=== PATIENT | male | born 1955 | race African-American/Black ===

== ENCOUNTER 2019-05-12 10:16 | Inpatient (IN) | payer OTHER ==
[~2019-05-12] VITALS: Ht 193 cm; Wt 149.2 kg
[~2019-05-12 10:16] MED LIST: ASPI-518 PO; CLON0.1T; DILT300C54; FURO-151 PO; SIMV40TA2
[2019-05-12 11:15] LABS: *AMPHETAMINES SCREEN URINE NEGATIVE (NEGATIVE); *BARBITURATES SCREEN URINE NEGATIVE (NEGATIVE); *BENZODIAZEPINES SCREEN URINE NEGATIVE (NEGATIVE); *COCAINE SCREEN URINE NEGATIVE (NEGATIVE); METHADONE URINE SCREEN NEGATIVE (NEGATIVE); OPIATES URINE SCREEN NEGATIVE (NEGATIVE)
[2019-05-12 11:16] LABS: CANNABINOID URINE SCREEN NEGATIVE (NEGATIVE); PHENCYCLIDINE URINE SCREEN NEGATIVE (NEGATIVE)
[2019-05-12 11:19] LABS: BASOPHILS % 0.6 % (0.0-2.0); EOSINOPHILS % 1.6 % (0.0-5.0); HEMATOCRIT. 48.5 % (42.0-52.0); HEMOGLOBIN. 16.5 g/dL (14.0-18.0); LYMPHOCYTES % 25.8 % (20.0-50.0); MEAN CORPUSCULAR HEMOGLOBIN 32.6 pg (28.0-32.0); MEAN PLATELET VOLUME 8.3 fl (7.4-10.4); MONOCYTES % 7.3 % (2.0-8.0); NEUTROPHILS % 64.7 % (40.0-76.0); PLATELET 324 x1000/uL (130-400); RED BLOOD CELL COUNT 5.05 mill/uL (4.7-6.1); RED CELL DISTRIBUTION WIDTH 15.6 % (11.6-14.6)
[2019-05-12 11:25] LABS: CHLORIDE 104 mEq/L (98-107)
[2019-05-12 11:28] LABS: ETHANOL BLOOD < 10 mg/dL; INR 1.2; PARTIAL THROMBOPLASTIN TIME 35.1 sec (23.4-31.0); PROTHROMBIN TIME 12.8 sec (9.6-11.0)
[2019-05-12] MEDS ORDERED: MORPHINE SULFATE 4 MG/ML CPJ (NOT FOR IM USE) IV STA (11:53)
[2019-05-12] MEDS ORDERED: ONDANSETRON HCL 4MG/2ML INJ IV STA (11:53)
[2019-05-12] MEDS ORDERED: NITROGLYCERIN OINT 1GM/INCH UDPKT TD ONE (12:00)
[2019-05-12] MEDS ORDERED: DILTIAZEM HCL 5MG/ML 5ML VIAL IV ONE (12:00)
[2019-05-12] MEDS ORDERED: ENOXAPARIN 120MG/0.8ML SYR SUBCUT ONE (12:00)
[2019-05-12] MEDS ORDERED: POTASSIUM CHLORIDE 20MEQ TABLET SR PO ONE ×2 (12:30→13:00)
[2019-05-12] MEDS ORDERED: ONDANSETRON HCL 4MG/2ML INJ IV PRN (14:00)
[2019-05-12] MEDS ORDERED: DOCUSATE SODIUM 100MG CAPSULE PO PRN (14:00)
[2019-05-12] MEDS ORDERED: MORPHINE SULFATE 2 MG/ML CPJ (NOT FOR IM USE) IV PRN (14:00)
[2019-05-12] MEDS ORDERED: GUAIFENESIN 200MG/10ML SUGAR FREE UDC PO PRN (14:00)
[2019-05-12] MEDS: NITROGLYCERIN OINT 1GM/INCH UDPKT TD SCH ×2 (14:00→23:19)
[2019-05-12] MEDS ORDERED: MAGNESIUM/ALUMINUM HYDROXIDE/SIMETHICONE 30ML UDC PO PRN (14:00)
[2019-05-12] MEDS: CLONIDINE 0.1MG TABLET PO PRN (14:24)
[2019-05-12] MEDS: ACETAMINOPHEN 325MG TABLET PO PRN (14:24)
[2019-05-12] MEDS: DILTIAZEM HCL 60MG TABLET PO SCH (17:27)
[2019-05-12 21:52] VITALS: BP 146/102
[2019-05-12 22:52] VITALS: BP 124/77
[2019-05-12] MEDS ORDERED: ENOXAPARIN 120MG/0.8ML SYR SUBCUT NR (23:00)
[2019-05-12] MEDS: ATORVASTATIN CALCIUM 10MG TABLET PO SCH (23:17)
[2019-05-13] VITALS (13 sets, daily range): BP systolic 117–156; BP diastolic 52–92
[2019-05-13] MEDS: DILTIAZEM HCL 60MG TABLET PO SCH ×2 (00:24→08:33)
[2019-05-13] MEDS: NITROGLYCERIN OINT 1GM/INCH UDPKT TD SCH ×3 (05:36→21:47)
[2019-05-13] MEDS ORDERED: CARV25TA47 PO (05:58)
[2019-05-13] MEDS ORDERED: VALS160T28 PO (05:58)
[2019-05-13 07:04] LABS: BASOPHILS % 0.6 % (0.0-2.0); HEMATOCRIT. 41.4 % (42.0-52.0); HEMOGLOBIN. 13.9 g/dL (14.0-18.0); LYMPHOCYTES % 28.9 % (20.0-50.0); MEAN CORPUSCULAR HEMOGLOBIN 31.9 pg (28.0-32.0); MEAN CORPUSCULAR VOLUME 95.3 fL (80.0-94.0); MEAN PLATELET VOLUME 8.6 fl (7.4-10.4); NEUTROPHILS % 55.5 % (40.0-76.0); PLATELET 290 x1000/uL (130-400); RED BLOOD CELL COUNT 4.34 mill/uL (4.7-6.1); RED CELL DISTRIBUTION WIDTH 15.7 % (11.6-14.6)
[2019-05-13] MEDS: ASPIRIN 81MG EC TABLET PO SCH (08:33)
[2019-05-13] MEDS: CARVEDILOL 3.125 MG TABLET PO SCH ×2 (10:14→20:36)
[2019-05-13] MEDS: ENOXAPARIN 150MG/ML SYR SUBCUT SCH (11:54)
[2019-05-13] MEDS: DILTIAZEM HCL 30MG TABLET PO SCH ×2 (11:55→17:10)
[2019-05-13] MEDS ORDERED: POTASSIUM CHLORIDE 20MEQ TABLET SR PO NR (12:45)
[2019-05-13] MEDS: ATORVASTATIN CALCIUM 10MG TABLET PO SCH (20:37)
[2019-05-14] VITALS (12 sets, daily range): BP systolic 127–171; BP diastolic 70–107
[2019-05-14] MEDS: DILTIAZEM HCL 30MG TABLET PO SCH ×4 (00:17→16:31)
[2019-05-14] MEDS: ENOXAPARIN 150MG/ML SYR SUBCUT SCH (00:17)
[2019-05-14] MEDS: ACETAMINOPHEN 325MG TABLET PO PRN (03:16)
[2019-05-14] MEDS: NITROGLYCERIN OINT 1GM/INCH UDPKT TD SCH ×2 (06:00→13:46)
[2019-05-14 07:12] LABS: BASOPHILS % 0.5 % (0.0-2.0); EOSINOPHILS % 1.8 % (0.0-5.0); HEMATOCRIT. 37.9 % (42.0-52.0); HEMOGLOBIN. 12.8 g/dL (14.0-18.0); MEAN CORPUSCULAR HEMOGLOBIN 32.1 pg (28.0-32.0); MEAN CORPUSCULAR VOLUME 94.9 fL (80.0-94.0); MEAN PLATELET VOLUME 8.4 fl (7.4-10.4); MONOCYTES % 11.6 % (2.0-8.0); NEUTROPHILS % 56.1 % (40.0-76.0); PLATELET 286 x1000/uL (130-400); RED BLOOD CELL COUNT 3.99 mill/uL (4.7-6.1); RED CELL DISTRIBUTION WIDTH 15.3 % (11.6-14.6)
[2019-05-14] MEDS: ASPIRIN 81MG EC TABLET PO SCH (08:28)
[2019-05-14] MEDS: CARVEDILOL 3.125 MG TABLET PO SCH (08:28)
[2019-05-14] MEDS: POTASSIUM CHLORIDE 20MEQ TABLET SR PO SCH (11:01)
[2019-05-14] MEDS: CLONIDINE 0.1MG TABLET PO PRN (12:14)
[2019-05-14] MEDS: APIXABAN 5 MG TABLET PO SCH (16:31)
[2019-05-14] MEDS ORDERED: CLONIDINE 0.2MG TABLET PO PRN (17:36)
[2019-05-14] MEDS: ATORVASTATIN CALCIUM 10MG TABLET PO SCH (21:10)
[2019-05-14] MEDS: CARVEDILOL 6.25 MG TABLET PO SCH (21:11)
[2019-05-15] VITALS (9 sets, daily range): BP systolic 109–169; BP diastolic 55–100
[2019-05-15] MEDS: DILTIAZEM HCL 60MG TABLET PO SCH ×3 (00:54→12:58)
[2019-05-15 06:15] LABS: CHLORIDE 108 mEq/L (98-107)
[2019-05-15] MEDS: POTASSIUM CHLORIDE 20MEQ TABLET SR PO SCH (09:37)
[2019-05-15] MEDS: CARVEDILOL 6.25 MG TABLET PO SCH (09:38)
[2019-05-15] MEDS: APIXABAN 5 MG TABLET PO SCH ×2 (09:39→14:18)
== END 2019-05-15 15:18 | disposition home or self-care (01) | DRG 280 ==
LOC: ER 10:16 → EDBEDREQ 12:08 → 3WST 12:13 → EDBEDREQ 12:19 → ENRESERV 20:51
PROVIDERS: ADMIT Hospitalist; ATTEND Hospitalist
DX: I21.4 Non-ST elevation (NSTEMI) myocardial infarction (principal); I50.43 Acute on chronic combined systolic (congestive) and diastolic (congestive) heart failure; N17.0 Acute kidney failure with tubular necrosis; I13.0 Hypertensive heart and chronic kidney disease with heart failure and stage 1 through stage 4 chronic kidney disease, or unspecified chronic kidney disease; I48.19 Other persistent atrial fibrillation; I48.92 Unspecified atrial flutter; I47.2 Ventricular tachycardia; N18.9 Chronic kidney disease, unspecified; E78.5 Hyperlipidemia, unspecified; E86.0 Dehydration; J44.9 Chronic obstructive pulmonary disease, unspecified; I49.8 Other specified cardiac arrhythmias; G47.33 Obstructive sleep apnea (adult) (pediatric); F43.10 Post-traumatic stress disorder, unspecified; Z79.01 Long term (current) use of anticoagulants; Z82.3 Family history of stroke; Z82.49 Family history of ischemic heart disease and other diseases of the circulatory system; Z86.73 Personal history of transient ischemic attack (TIA), and cerebral infarction without residual deficits; Z79.82 Long term (current) use of aspirin; Z88.8 Allergy status to other drugs, medicaments and biological substances
CPT/HCPCS: 36415; 71045; 80048; 80053; 80061; 80305; 80320; 83735; 83880; 84484; 85025; 93005; 93306; 93970; 99291; J1650; J2270; J2405; J3490; G0480

== ENCOUNTER 2019-05-18 17:13 | Inpatient (IN) | payer OTHER ==
[~2019-05-18] VITALS: Ht 193 cm; Wt 149.7 kg
[~2019-05-18 17:13] MED LIST changes: +CARV25TA47 PO; +VALS160T28 PO
[2019-05-18 19:01] LABS: BASOPHILS % 0.3 % (0.0-2.0); EOSINOPHILS % 1.4 % (0.0-5.0); HEMATOCRIT. 45.2 % (42.0-52.0); HEMOGLOBIN. 15.2 g/dL (14.0-18.0); LYMPHOCYTES % 24.3 % (20.0-50.0); MEAN CORPUSCULAR HEMOGLOBIN 32.1 pg (28.0-32.0); MEAN CORPUSCULAR VOLUME 95.4 fL (80.0-94.0); MEAN PLATELET VOLUME 7.9 fl (7.4-10.4); PLATELET 288 x1000/uL (130-400); RED BLOOD CELL COUNT 4.74 mill/uL (4.7-6.1); RED CELL DISTRIBUTION WIDTH 15.7 % (11.6-14.6)
[2019-05-18 19:10] LABS: INR 1.2; PARTIAL THROMBOPLASTIN TIME 34.5 sec (23.4-31.0); PROTHROMBIN TIME 13.2 sec (9.6-11.0)
[2019-05-18 19:17] LABS: CHLORIDE 102 mEq/L (98-107)
[2019-05-18] MEDS ORDERED: ASPIRIN 325MG EC TABLET PO ONE (20:30)
[2019-05-19 08:15] VITALS: BP 141/98
[2019-05-19] MEDS ORDERED: MORPHINE SULFATE 2 MG/ML CPJ (NOT FOR IM USE) IV PRN (09:00)
[2019-05-19] MEDS ORDERED: DOCUSATE SODIUM 100MG CAPSULE PO PRN (09:00)
[2019-05-19] MEDS ORDERED: HYDROCODONE/ACETAMINOPHEN 5/325MG TABLET PO PRN (09:00)
[2019-05-19] MEDS ORDERED: ENOXAPARIN 40MG/0.4ML SYR SUBCUT SCH (09:00)
[2019-05-19] MEDS ORDERED: ONDANSETRON HCL 4MG/2ML INJ IV PRN (09:00)
[2019-05-19] MEDS ORDERED: ACETAMINOPHEN 325MG TABLET PO PRN (09:00)
[2019-05-19] MEDS: ENOXAPARIN 40MG/0.4ML SYR SUBCUT SCH ×2 (09:26→22:31)
[2019-05-19] MEDS: AMLODIPINE 10MG TABLET PO SCH (09:27)
[2019-05-19] MEDS: ASPIRIN 81MG EC TABLET PO SCH (09:27)
[2019-05-19] MEDS ORDERED: POTA20TA82 PO (09:55)
[2019-05-19 12:00] VITALS: BP 120/83
[2019-05-19] MEDS ORDERED: LOPERAMIDE HCL 2MG CAPSULE PO SCH (14:15)
[2019-05-19 15:23] LABS: CREATINE KINASE MB FRACTION 3.8 ng/mL (0.5-3.6)
[2019-05-19 16:00] VITALS: BP 151/78
[2019-05-19 20:00] VITALS: BP 122/80
[2019-05-19 23:49] LABS: CREATINE KINASE MB FRACTION 3.4 ng/mL (0.5-3.6)
[2019-05-20] VITALS (9 sets, daily range): BP systolic 109–139; BP diastolic 62–91
[2019-05-20 07:47] LABS: BASOPHILS % 0.7 % (0.0-2.0); EOSINOPHILS % 3.6 % (0.0-5.0); HEMATOCRIT. 42.1 % (42.0-52.0); HEMOGLOBIN. 14.6 g/dL (14.0-18.0); MEAN CORPUSCULAR HEMOGLOBIN 32.7 pg (28.0-32.0); MEAN CORPUSCULAR VOLUME 94.4 fL (80.0-94.0); MEAN PLATELET VOLUME 8.1 fl (7.4-10.4); MONOCYTES % 10.9 % (2.0-8.0); NEUTROPHILS % 53.8 % (40.0-76.0); PLATELET 285 x1000/uL (130-400); RED BLOOD CELL COUNT 4.46 mill/uL (4.7-6.1); RED CELL DISTRIBUTION WIDTH 15.5 % (11.6-14.6)
[2019-05-20 08:03] LABS: CHLORIDE 109 mEq/L (98-107)
[2019-05-20 08:17] LABS: LDL CHOLESTEROL 73 mg/dL (5-100)
[2019-05-20 08:18] LABS: HDL CHOLESTEROL 25 mg/dL (40-59)
[2019-05-20] MEDS ORDERED: APIXABAN 5 MG TABLET PO SCH (09:00)
[2019-05-20] MEDS ORDERED: DILTIAZEM HCL 30MG TABLET PO PRN (09:45)
[2019-05-20] MEDS: AMLODIPINE 10MG TABLET PO SCH (13:04)
[2019-05-20] MEDS: ASPIRIN 81MG EC TABLET PO SCH (13:04)
[2019-05-20] MEDS: APIXABAN 5 MG TABLET PO SCH (21:59)
[2019-05-20] MEDS: CARVEDILOL 12.5MG TABLET PO SCH (21:59)
[2019-05-20] MEDS ORDERED: POTASSIUM CHLORIDE 20MEQ TABLET SR PO NR (22:00)
[2019-05-20] MEDS ORDERED: POTASSIUM CHLORIDE INJ 40 MEQ in DEXT 5% WATER 250 ML IV NR (22:30)
[2019-05-21] VITALS: BP 111/72
[2019-05-21 04:00] VITALS: BP 161/101
[2019-05-21 08:00] VITALS: BP 150/96
[2019-05-21] MEDS: APIXABAN 5 MG TABLET PO SCH ×2 (09:30→16:46)
[2019-05-21] MEDS: CARVEDILOL 12.5MG TABLET PO SCH ×2 (09:30→21:05)
[2019-05-21] MEDS: AMLODIPINE 10MG TABLET PO SCH (09:30)
[2019-05-21] MEDS: ASPIRIN 81MG EC TABLET PO SCH (09:30)
[2019-05-21 12:00] VITALS: BP 150/112
[2019-05-21 16:00] VITALS: BP 148/89
[2019-05-21 20:00] VITALS: BP 148/84
[2019-05-22] VITALS: BP 137/90
[2019-05-22 04:00] VITALS: BP_SYST 100; BP_SYST 126; BP_DIAS 52; BP_DIAS 83
[2019-05-22] MEDS ORDERED: CLOPIDOGREL 75MG TABLET PO SCH (08:00)
[2019-05-22] MEDS: CARVEDILOL 12.5MG TABLET PO SCH ×2 (09:50→21:45)
[2019-05-22] MEDS: ASPIRIN 81MG TABLET PO SCH (09:51)
[2019-05-22] MEDS: CLOPIDOGREL 75MG TABLET PO SCH (09:51)
[2019-05-22] MEDS: AMLODIPINE 10MG TABLET PO SCH (09:51)
[2019-05-22 12:00] VITALS: BP 142/90
[2019-05-22 16:00] VITALS: BP 144/96
[2019-05-22 20:00] VITALS: BP 139/92
[2019-05-22 23:00] VITALS: BP 147/83
[2019-05-23] MEDS ORDERED: MAGNESIUM 2 G PREMIX 50 ML IV SCH (02:00)
[2019-05-23 04:00] VITALS: BP 142/86
[2019-05-23 08:00] VITALS: BP 145/91
[2019-05-23] MEDS: CLOPIDOGREL 75MG TABLET PO SCH (09:20)
[2019-05-23] MEDS: AMLODIPINE 10MG TABLET PO SCH (09:21)
[2019-05-23] MEDS: ASPIRIN 81MG TABLET PO SCH (09:21)
[2019-05-23] MEDS: CARVEDILOL 12.5MG TABLET PO SCH ×2 (09:21→21:32)
[2019-05-23] MEDS: LOSARTAN POTASSIUM 50 MG TABLET PO SCH (11:25)
[2019-05-23 11:38] VITALS: BP 136/71
[2019-05-23 16:00] VITALS: BP 165/100
[2019-05-23] MEDS: CLONIDINE 0.1MG TABLET PO PRN (16:25)
[2019-05-23 20:00] VITALS: BP 155/95
[2019-05-24] VITALS: BP 142/98
[2019-05-24 04:00] VITALS: BP 142/76
[2019-05-24 08:00] VITALS: BP 145/92
[2019-05-24] MEDS: CLOPIDOGREL 75MG TABLET PO SCH (09:00)
[2019-05-24] MEDS: LOSARTAN POTASSIUM 50 MG TABLET PO SCH (10:12)
[2019-05-24] MEDS: ASPIRIN 81MG TABLET PO SCH (10:12)
[2019-05-24] MEDS: CARVEDILOL 12.5MG TABLET PO SCH ×2 (10:12→20:26)
[2019-05-24 12:00] VITALS: BP 144/91
[2019-05-24] MEDS: LORAZEPAM 2MG/ML CPJ IV PRN ×2 (12:16→20:26)
[2019-05-24 16:00] VITALS: BP 163/99
[2019-05-24] MEDS: CLONIDINE 0.1MG TABLET PO PRN (17:03)
[2019-05-24 20:00] VITALS: BP 170/90
[2019-05-25] VITALS: BP 172/101
[2019-05-25] MEDS: CLONIDINE 0.1MG TABLET PO PRN (00:09)
[2019-05-25 04:00] VITALS: BP 104/57
[2019-05-25 08:00] VITALS: BP 126/78
[2019-05-25] MEDS: ASPIRIN 81MG TABLET PO SCH (09:27)
[2019-05-25] MEDS: LOSARTAN POTASSIUM 50 MG TABLET PO SCH (09:27)
[2019-05-25] MEDS: CLOPIDOGREL 75MG TABLET PO SCH (09:27)
[2019-05-25] MEDS: CARVEDILOL 12.5MG TABLET PO SCH ×2 (09:27→21:19)
[2019-05-25 12:00] VITALS: BP 154/93
[2019-05-25 16:00] VITALS: BP 133/76
[2019-05-25 20:00] VITALS: BP 123/78
[2019-05-25] MEDS: LORAZEPAM 2MG/ML CPJ IV PRN (21:26)
[2019-05-26] VITALS: BP 137/89
[2019-05-26 04:00] VITALS: BP 140/90
[2019-05-26 08:00] VITALS: BP 117/84
[2019-05-26] MEDS: ASPIRIN 81MG TABLET PO SCH (09:11)
[2019-05-26] MEDS: LOSARTAN POTASSIUM 50 MG TABLET PO SCH (09:12)
[2019-05-26] MEDS: CARVEDILOL 12.5MG TABLET PO SCH (09:12)
[2019-05-26] MEDS: CLOPIDOGREL 75MG TABLET PO SCH (09:12)
[2019-05-26] MEDS ORDERED: MAGNESIUM 1 G PREMIX 100 ML IV ONE (11:45)
[2019-05-26 12:00] VITALS: BP 117/85
[2019-05-26 13:06] LABS: HEMATOCRIT. 42.7 % (42.0-52.0); HEMOGLOBIN. 14.6 g/dL (14.0-18.0); MEAN CORPUSCULAR HEMOGLOBIN 32.1 pg (28.0-32.0); MEAN PLATELET VOLUME 8.5 fl (7.4-10.4); PLATELET 192 x1000/uL (130-400); RED BLOOD CELL COUNT 4.55 mill/uL (4.7-6.1); RED CELL DISTRIBUTION WIDTH 15.3 % (11.6-14.6)
[2019-05-26 13:12] LABS: CHLORIDE 102 mEq/L (98-107)
[2019-05-26 13:27] LABS: PLATELET ESTIMATE NORMAL
[2019-05-26 14:10] VITALS: BP_SYST 110; BP_SYST 117; BP_DIAS 65; BP_DIAS 85
[2019-05-26 16:00] VITALS: BP 110/65
== END 2019-05-26 20:42 | disposition short-term general hospital (02) | DRG 308 ==
LOC: ER 17:13 → EDBEDREQ 20:53 → EDBEDREQTM 20:53 → ENRESERV 05-19 07:46 → 5WST 05-19 08:12
PROVIDERS: ADMIT Hospitalist; ATTEND Hospitalist
DX: I48.20 Chronic atrial fibrillation, unspecified (principal); N17.0 Acute kidney failure with tubular necrosis; I13.0 Hypertensive heart and chronic kidney disease with heart failure and stage 1 through stage 4 chronic kidney disease, or unspecified chronic kidney disease; I50.22 Chronic systolic (congestive) heart failure; Z68.41 Body mass index [BMI] 40.0-44.9, adult; I69.351 Hemiplegia and hemiparesis following cerebral infarction affecting right dominant side; I42.9 Cardiomyopathy, unspecified; I47.2 Ventricular tachycardia; E66.01 Morbid (severe) obesity due to excess calories; N18.9 Chronic kidney disease, unspecified; M17.12 Unilateral primary osteoarthritis, left knee; G62.9 Polyneuropathy, unspecified; I25.10 Atherosclerotic heart disease of native coronary artery without angina pectoris; G47.33 Obstructive sleep apnea (adult) (pediatric); E78.5 Hyperlipidemia, unspecified; Z91.19 Patient's noncompliance with other medical treatment and regimen; Z79.01 Long term (current) use of anticoagulants; Z88.8 Allergy status to other drugs, medicaments and biological substances; Z79.82 Long term (current) use of aspirin; Z79.899 Other long term (current) drug therapy
CPT/HCPCS: 36415; 71045; 73560; 80048; 80053; 80061; 82550; 82553; 83735; 83880; 84132; 84484; 85025; 93005; 93306; 93970; 97162; 97166; 97535; 99285; J1650; J2060; J3475; J3480; J7060